=== PATIENT | female | born 1980 | race Caucasian/White ===

== ENCOUNTER 2017-08-27 07:59 | Emergency (ER) | payer OTHER ==
[~2017-08-27] VITALS: Ht 182.9 cm; Wt 81.6 kg
[2017-08-27 08:06] VITALS: BP 144/74
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
[2017-08-27] MEDS ORDERED: ROBAXIN-750750 M1 PO (09:24)
[2017-08-27] MEDS ORDERED: IBUPROFEN800 M1 PO (09:24)
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
== END 2017-08-27 10:13 ==
LOC: ERH 07:59
DX: S80.01XA Contusion of right knee, initial encounter (principal); S80.211A Abrasion, right knee, initial encounter; M54.2 Cervicalgia; V89.2XXA Person injured in unspecified motor-vehicle accident, traffic, initial encounter; Y92.410 Unspecified street and highway as the place of occurrence of the external cause
CPT/HCPCS: 72050; 73562-RT; 81025